=== PATIENT | male | born 1945 | race Two or more races ===

== ENCOUNTER 2024-04-10 16:58 | Emergency (ER) | payer OTHER ==
[~2024-04-10] VITALS: Ht 162.6 cm; Wt 104.5 kg
[2024-04-10] MEDS: HYDROcodone-ACET 5/325MG TAB PO ONE (18:49)
[2024-04-10 18:51] VITALS: PULSE 107; RESP 18; O2SAT 94
[2024-04-10 19:40] VITALS: PULSE 102; RESP 16; O2SAT 95
[2024-04-10] MEDS: FUROSEMIDE 40 MG/4 ML VIAL IV ONE (19:45)
[2024-04-10 20:33] LABS: Basophils # (auto) 0.1 10 ^3/uL (0-0.2); Basophils % (auto) 0.4 % (0.0-2.0); Eosinophils # (auto) 0 10 ^3/uL (0-0.8); Eosinophils % (auto) 0.1 % (0.0-7.0); Hematocrit 44.4 % (41.0-53.0); Hemoglobin 15.3 g/dL (13.5-17.5); Lymphocytes # (auto) 1.6 10 ^3/uL (0.4-5.4); Lymphocytes % (auto) 9.7 % (10.0-50.0); Mean Corpuscular Hgb Conc. 34.4 g/dL (32.0-36.0); Mean Corpuscular Volume 92.9 fL (80.0-100.0); Monocytes # (auto) 1.1 10 ^3/uL (0-1.3); Monocytes % (auto) 6.5 % (0.0-12.0); Neutrophils # (auto) 13.7 10 ^3/uL (1.6-8.6); Neutrophils % (auto) 83.3 % (37.0-80.0); Nucleated Red Blood Cells % 0.1 %; Platelet Count (auto) 239 10^3/uL (140-450); Red Blood Cells 4.78 10^6/uL (4.5-5.90); Red Cell Distribution Width 13.9 % (11.8-14.3); White Blood Cell 16.4 10^3/uL (4.4-10.8)
[2024-04-10 20:42] LABS: Chloride 106 mmol/L (98-107); Potassium 3.8 mmol/L (3.5-5.1); Sodium 139 mmol/L (136-145)
[2024-04-10 20:43] LABS: Anion Gap 9 (5-15); Calcium 9.9 mg/dL (8.7-10.4); Carbon Dioxide 24 mmol/L (20-30)
[2024-04-10 20:48] LABS: BUN/Creatinine Ratio 19.8 (10.0-20.0); Blood Urea Nitrogen 21 mg/dL (9-23); Glucose 195 mg/dL (74-106)
[2024-04-10] MEDS: MORPHINE SULFATE 4 MG/ML SYR/VIAL IV ONE (23:16)
[2024-04-10] MEDS: ONDANSETRON HCL 4 MG/2 ML VIAL IV ONE (23:17)
[2024-04-10 23:37] VITALS: BP 125/71; PULSE 93; RESP 21; TEMP 98.7; O2SAT 94
== END 2024-04-11 | disposition short-term general hospital (02) ==
LOC: ER 16:58 → EDBD 16:58 → ER 04-11
DX: S70.02XA Contusion of left hip, initial encounter (principal); S20.212A Contusion of left front wall of thorax, initial encounter; I10 Essential (primary) hypertension; E78.00 Pure hypercholesterolemia, unspecified; R06.2 Wheezing; V89.2XXA Person injured in unspecified motor-vehicle accident, traffic, initial encounter; Y93.I9 Activity, other involving external motion; Y92.488 Other paved roadways as the place of occurrence of the external cause; Y99.8 Other external cause status
CPT/HCPCS: 36415; 71045; 72125; 73502; 80048; 83880; 84484; 85025; 93005; 96374; 96375; 99285; J1940; J2270; J2405